=== PATIENT | female | born 1950 | race Caucasian/White ===

== ENCOUNTER 2019-07-13 07:01 | Inpatient (IN) ==
[2019-07-13] MEDS ORDERED: DUONEB (A & A) INH ONE (07:24)
[2019-07-13 07:33] LABS: ALLEN TEST YES; BE -12.7 mmoll (-3.0-3.0); BLOOD TYPE ARTERIAL; HCO3-(ACT) 14.7 mmoll (20.0-26.0); METHB 0.7 % (0.0-1.5); O2(CT) 14.6 mL/dL (15.0-23.0); PCO2(98.6) 37 mmHg (35-45); PO2(98.6) 56 mmHg (60-100); SAMPLE BLOOD; SAO2 86.5 % (95.0-100.0); THB 12.3 g/dL (11.5-17.4)
[2019-07-13 07:34] LABS: O2HB 84.2 % (95.0-99.0)
[2019-07-13 07:35] LABS: MODALITY NRB
--- NOTE | 2019-07-13 07:49 | Diag Imaging Result Doc PS360 ---
EXAM: CHEST-1 VIEW INDICATION: sob TECHNIQUE: One view COMPARISON: 11/03/2017 FINDINGS: There is dense airspace consolidation throughout the right lung and in the left lower lobe. There is no definite pleural fluid collection or pneumothorax. Cardiac silhouette is unremarkable. IMPRESSION: Bilateral airspace consolidation that is worst on the right as described indicating pneumonia. Electronically signed by Rubin Rodriguez 07/13/2019 7:47 AM
[2019-07-13 07:55] LABS: BASO# 0.04 X1000 (0.0-0.2); BASO% 0.1 % (0.0-0.8); EOS# 0.01 X1000 (0.0-0.7); HEMATOCRIT 27.7 % (37.0-47.0); HEMOGLOBIN 9.9 g/dL (12.0-16.0); IMM GRAN# 0.81 X1000 (0.0-0.04); LYMPH% 4.8 % (20.5-51.1); MCH 34.1 PG (27-31); MCHC 35.7 g/dL (33-37); MCV 95.5 FL (81-99); MONO# 0.28 X1000 (0.11-0.59); MPV 11.1 FL (7.4-10.4); NEUT# 24.83 X1000 (1.4-6.5); NEUT% 91.1 % (42.2-75.2); PLT 352 X1000 (130-400); RDW 15.5 % (11.5-14.5); WBC 27.27 X1000 (4.8-10.8)
[2019-07-13 07:57] LABS: INR 1.31; PROTIME 16.5 Seconds (11.0-16.0)
[2019-07-13 07:58] LABS: PTT 35.6 Seconds (22.3-41.8)
[2019-07-13] MEDS ORDERED: LEVAQUIN 750 MG/D5W 750 MG/150 ML IVPB IV ONE (08:05)
[2019-07-13] MEDS ORDERED: SODIUM CHLORIDE IV ONE (08:05)
--- NOTE | 2019-07-13 08:26 | PROVIDER DOCUMENTATION ---
HPI-Respiratory General - General Chief Complaint: SEPSIS ALERT - D Stated Complaint: resp distress Time Seen by Provider: 07/13/19 07:22 Source: patient, family, EMS Allergies/Adverse Reactions: Patient Allergies Allergy/AdvReac Type Severity Reaction Status Date / Time No Known Allergies Allergy Verified 11/03/17 08:03 Home Medications: Home Medication List Medication Instructions Recorded Confirmed Last Taken Type Fluoxetine [Prozac] 40 mg PO DAILY 11/03/17 07/13/19 Unknown History Aripiprazole 1 tab PO DAILY 07/13/19 07/13/19 Unknown History Budesonide/Formoterol Fumarate 07/13/19 07/13/19 Unknown History [Symbicort 160-4.5 Mcg Inhaler] Clorazepate Dipotassium [Tranxene 1 tab PO BID PRN 07/13/19 07/13/19 Unknown History T-Tab] Fluoxetine HCl 20 mg PO DAILY 07/13/19 07/13/19 Unknown History Levothyroxine Sodium [Synthroid] 1 tab PO DAILY 07/13/19 07/13/19 Unknown History Umeclidinium Brm/Vilanterol Tr 1 puff INH DAILY 07/13/19 07/13/19 Unknown History [Anoro Ellipta 62.5-25 Mcg INH] - History of Present Illness-Resp Nature of Presenting Problem: 69 y/o WF brought to Er after being found in respiratory distress this am. Pt notes that she has hx of COPD and was out of her meds for the past week. He Daughter notes that she has also been sick with a "GI stomach bug".EMS noted that pts sats on arrival to home were 50% on RA. Pt does not wear oxygen at home. Quality of Pain: reports: aching Severity in ED: reports: severe Onset/Duration: reports: 1 week ago Timing: reports: still present, getting worse Context: reports: out of meds Cough Quality/Degree: reports: moderate Episode Frequency: occasional episodes Current Respiratory Medication Therapy: Initiated see nurses note Modifying Factors: improves with: albuterol inhaler, albuterol nebulizer, coughing, deep breath, oxygen Associated Symptoms: reports: cough, shortness of breath, wheezing. denies: chest pain/soreness, fever/chills Similar Symptoms Previously?: Yes Recently seen or treated by another doctor?: No Review of Systems - Adult - REVIEW OF SYSTEMS - ADULT Constitutional: reports: no symptoms reported, see HPI Eyes: reports: no symptoms reported, see HPI Ears, Nose, Mouth & Throat: reports: no symptoms reported, see HPI Cardiovascular: reports: no symptoms reported, see HPI Respiratory: reports: see HPI, cough, shortness of breath, wheezing Gastrointestinal: reports: no symptoms reported, see HPI Genitourinary: reports: no symptoms reported, see HPI Musculoskeletal: reports: no symptoms reported, see HPI Integumentary: reports: no symptoms reported, see HPI Neurological: reports: no symptoms reported, see HPI Psychiatric: reports: no symptoms reported, see HPI Endocrine: reports: no symptoms reported, see HPI Hematologic/Lymphatic: reports: no symptoms reported, see HPI Allergic/Immunologic: reports: no symptoms reported, see HPI All Other Systems: Reviewed and Negative Past History - Adult - PAST MEDICAL HISTORY-ADULT Review of Records: reports: Nursing Assessment Review, Medications Reviewed, Social history reviewed & non-contributory. Major Childhood Illnesses: reports: denies history Cardiovascular: reports: denies history Respiratory: reports: COPD Gastrointestinal: reports: denies history Genitourinary: reports: denies history Physical Exam-General - PHYSICAL EXAM-ADULT Initial Vital Signs Reviewed: Yes - CONSTITUTIONAL General Appearance: appears well, alert, moderate distress, anxious - EYES Eyes: PERRL/EOMI - HEAD, EARS, NOSE, MOUTH & THROAT HENMT: normocephalic/atraumatic, moist mucous membranes - NECK Neck: non-tender, full range of motion, supple, normal inspection - RESPIRATORY Respiratory: respiratory distress (inproved with bipap), rhonchi (worse on rt side), wheezing, increased rate - CARDIOVASCULAR Cardiovascular: normal peripheral pulses, regular rate, rhythm, no edema, no gallop, no JVD, no murmur - GASTROINTESTINAL (ABDOMEN) Abdominal Exam: normal bowel sounds, non tender, soft, no organomegaly, no pulsatile mass - LYMPHATIC Lymphatic: no adenopathy - MUSCULOSKELETAL Back Exam: normal inspection, no CVA tenderness, no vertebral tenderness Extremity: normal range of motion, non-tender, normal gait, normal inspection, no pedal edema, no calf tenderness, normal capillary refill - SKIN Integumentary: normal color, normal turgor - NEUROLOGIC Neurologic: java front end web developer II-XII nml as tested, grossly normal, no motor/sensory deficits - PSYCHIATRIC Psych/Mental Status: normal mood/affect, normal thought content, normal thought process, oriented x 3 - HEART Score HEART Score: History: Slightly Suspicious HEART Score: ECG: Non-Specific Repolarization Disturbance/LBBB/PM HEART Score: Age: > or = 65 Years HEART Score: Risk Factors for Atherosclerotic Disease: 1 or 2 Risk Factors HEART Score: Troponin: < or = Normal Limit Total HEART Score:: 4 Progress - PLAN OF CARE/RESULTS Progress/Plan/Lab Results: Vital Signs - 8 hr 07/13/19 07:18 07/13/19 07:47 07/13/19 07:53 Temperature 97.5 F L Pulse Rate 93 H 91 H 91 H Respiratory Rate 38 H 36 H 37 H Blood Pressure 110/68 O2 Sat by Pulse Oximetry 86 L 95 95 07/13/19 07:33 Influenza Screen - Final Nasopharyngeal Laboratory Results - last 24 hr 07/13/19 07/13/19 07/13/19 05:40 05:40 05:40 WBC RBC Hgb Hct MCV MCH MCHC RDW Std Deviation Plt Count MPV Immature Gran % (Auto) Neut % (Auto) Lymph % (Auto) [place] % (Auto) Eos % (Auto) Baso % (Auto) Immature Gran # (Auto) Neut # (Auto) Lymph # (Auto) [place] # (Auto) Eos # (Auto) Baso # (Auto) PT INR PTT (Actin FS) Specimen Type Sample Site pH pCO2 pO2 HCO3 Base Excess Oxyhemoglobin ABG O2 Sat (Calculated) ABG O2 Saturation ABG Carboxyhemoglobin ABG Methemoglobin Mars Test A-a O2 Difference Total Hemoglobin Lactate Liter Flow Blood Gas Modality FiO2 % Sodium Potassium Chloride Carbon Dioxide Anion Gap BUN Creatinine Estimated GFR/1.73 m2 BUN/Creatinine Ratio Glucose Calculated Osmolality Calcium Total Bilirubin AST ALT Alkaline Phosphatase Creatine Kinase Troponin T High Sens [id number]-[id number] Pept Total Protein Albumin Globulin Albumin/Globulin Ratio Plasma Lactate Vitamin B12 > 2000 H Folate 15.5 TSH 0.46 Free T4 0.91 L 07/13/19 07/13/19 07/13/19 07:25 07:34 07:34 WBC 27.27 H RBC 2.90 L Hgb 9.9 L Hct 27.7 L MCV 95.5 MCH 34.1 H MCHC 35.7 RDW Std Deviation 15.5 H Plt Count 352 MPV 11.1 H Immature Gran % (Auto) 3.0 H Neut % (Auto) 91.1 H Lymph % (Auto) 4.8 L [place] % (Auto) 1.0 L Eos % (Auto) 0.0 Baso % (Auto) 0.1 Immature Gran # (Auto) 0.81 H Neut # (Auto) 24.83 H Lymph # (Auto) 1.30 [place] # (Auto) 0.28 Eos # (Auto) 0.01 Baso # (Auto) 0.04 PT 16.5 H INR 1.31 PTT (Actin FS) 35.6 Specimen Type ARTERIAL Sample Site R RADIAL pH 7.20 L pCO2 37 pO2 56 L HCO3 14.7 L Base Excess -12.7 L Oxyhemoglobin 84.2 L* ABG O2 Sat (Calculated) 14.6 L ABG O2 Saturation 86.5 L ABG Carboxyhemoglobin 2.10 ABG Methemoglobin 0.7 Mars Test YES A-a O2 Difference 611.0 Total Hemoglobin 12.3 Lactate 5.40 H* Liter Flow 15.0 Blood Gas Modality NRB FiO2 % 100.0 Sodium Potassium Chloride Carbon Dioxide Anion Gap BUN Creatinine Estimated GFR/1.73 m2 BUN/Creatinine Ratio Glucose Calculated Osmolality Calcium Total Bilirubin AST ALT Alkaline Phosphatase Creatine Kinase Troponin T High Sens [id number] Pept Total Protein Albumin Globulin Albumin/Globulin Ratio Plasma Lactate Vitamin B12 Folate TSH Free T4 07/13/19 07/13/19 07/13/19 07:34 08:40 08:40 WBC RBC Hgb Hct MCV MCH MCHC RDW Std Deviation Plt Count MPV Immature Gran % (Auto) Neut % (Auto) Lymph % (Auto) [place] % (Auto) Eos % (Auto) Baso % (Auto) Immature Gran # (Auto) Neut # (Auto) Lymph # (Auto) [place] # (Auto) Eos # (Auto) Baso # (Auto) PT INR PTT (Actin FS) Specimen Type Sample Site pH pCO2 pO2 HCO3 Base Excess Oxyhemoglobin ABG O2 Sat (Calculated) ABG O2 Saturation ABG Carboxyhemoglobin ABG Methemoglobin Mars Test A-a O2 Difference Total Hemoglobin Lactate Liter Flow Blood Gas Modality FiO2 % Sodium 136 Potassium 3.3 L Chloride 98 Carbon Dioxide 15 L Anion Gap 23 BUN 67 H Creatinine 2.7 H Estimated GFR/1.73 m2 17 BUN/Creatinine Ratio 25 Glucose 83 Calculated Osmolality 290 Calcium 7.6 L Total Bilirubin 0.42 AST 48 H ALT 12 Alkaline Phosphatase 228 H Creatine Kinase 99 Troponin T High Sens 65 H [id number]-[id number] Pept Total Protein 5.7 L Albumin 2.2 L Globulin 3.5 Albumin/Globulin Ratio 0.6 Plasma Lactate 5.9 H* Vitamin B12 Folate TSH Free T4 07/13/19 08:40 WBC RBC Hgb Hct MCV MCH MCHC RDW Std Deviation Plt Count MPV Immature Gran % (Auto) Neut % (Auto) Lymph % (Auto) [place] % (Auto) Eos % (Auto) Baso % (Auto) Immature Gran # (Auto) Neut # (Auto) Lymph # (Auto) [place] # (Auto) Eos # (Auto) Baso # (Auto) PT INR PTT (Actin FS) Specimen Type Sample Site pH pCO2 pO2 HCO3 Base Excess Oxyhemoglobin ABG O2 Sat (Calculated) ABG O2 Saturation ABG Carboxyhemoglobin ABG Methemoglobin Mars Test A-a O2 Difference Total Hemoglobin Lactate Liter Flow Blood Gas Modality FiO2 % Sodium Potassium Chloride Carbon Dioxide Anion Gap BUN Creatinine Estimated GFR/1.73 m2 BUN/Creatinine Ratio Glucose Calculated Osmolality Calcium Total Bilirubin AST ALT Alkaline Phosphatase Creatine Kinase Troponin T High Sens [id number]-H-Daheogebizv Pept > 73344 H Total Protein Albumin Globulin Albumin/Globulin Ratio Plasma Lactate Vitamin B12 Folate TSH Free T4 Orders Category Date Time Status Admit - [facility] Routine AdmDCTranf 07/13/19 09:20 Active Activity - Up with Assistance ORDERED Care 07/13/19 09:20 Active Apply Mechanical Device [QM] ORDERED Care 07/13/19 09:20 Active Elevate Head of Bed DIRECTED Care 07/13/19 09:20 Active Encourage Fluids DIRECTED Care 07/13/19 09:20 Active Intake and Output-Strict Q 8-HR ASSESS Care 07/13/19 09:20 Active Nursing- Assist w/ IS as order ORDERED Care 07/13/19 09:20 Active Nursing- Obtain EKG ONCE Care 07/13/19 07:22 Active Turn, Cough and Deep Breathe Q2HR Care 07/13/19 09:20 Active Vital Signs Order Q 4-HR ASSESS Care 07/13/19 09:20 Active Z-Document. for Tele Applied ORDERED Care 07/13/19 09:20 Active Heart Healthy Diet Diet 07/13/19 09:20 Active CHEST-1 VIEW [RAD] Stat Exams 07/13/19 07:22 Completed ABG [RESP] Routine Lab 07/13/19 07:25 Completed BASIC METABOLIC PANEL [CHEM] Routine Lab 07/14/19 06:00 Ordered BLOOD CULTURE [BLDCUL] Stat Lab 07/13/19 07:34 Results CBC WITH DIFF [HEME] Routine Lab 07/14/19 06:00 Ordered CBC WITH ELECTRONIC DIFF [HEME] Stat Lab 07/13/19 07:34 Completed CK PROFILE [SP CHEM] Routine Lab 07/13/19 08:40 Completed COMPREHENSIVE METABOLIC PANEL [CHEM] Routine Lab 07/13/19 08:40 Completed FOLATE Stat Lab 07/13/19 05:40 Completed FREE T4 Routine Lab 07/13/19 05:40 Completed Flu Swab [INFLUENZA SCREEN A/B] Stat Lab 07/13/19 07:33 Completed Flu Swab [INFLUENZA SCREEN A/B] Stat Lab 07/13/19 08:49 Ordered LACTATE, PLASMA [CHEM] Lab 07/13/19 10:45 Ordered LACTATE, PLASMA [CHEM] Lab 07/13/19 13:45 Ordered LACTATE, PLASMA [CHEM] Q3H Lab 07/13/19 07:34 Completed PRO B-NATRIURETIC PEPTIDE Routine Lab 07/13/19 08:40 Completed PROTIME WITH INR [COAG] Stat Lab 07/13/19 07:34 Completed PTT [COAG] Stat Lab 07/13/19 07:34 Completed TROPONIN T HIGH SENSITIVITY Routine Lab 07/13/19 08:40 Completed TSH Routine Lab 07/13/19 05:40 Completed URINALYSIS W/POSS RFLX CULT [URINALYSIS] Stat Lab 07/13/19 07:43 Uncollected VITAMIN B12 Stat Lab 07/13/19 05:40 Completed 0.9% Sodium Chloride Inj [Ns] 1,000 ml Med 07/13/19 09:20 Active IV 75 mls/hr 0.9% Sodium Chloride Inj [Ns] 2,175 ml Med 07/13/19 08:05 Discontinued IV 999 mls/hr Acetaminophen [Tylenol] Med 07/13/19 09:20 Active 650 mg PO Q4H PRN PRN Albuterol 2.5MG/Ipratrop 0.5MG [Duoneb (A & A)] Med 07/13/19 07:24 Discontinued 3 ml INH NOW ONE Albuterol 2.5MG/Ipratrop 0.5MG [Duoneb (A & A)] Med 07/13/19 09:20 Active 3 ml INH Q2H PRN PRN Albuterol 2.5MG/Ipratrop 0.5MG [Duoneb (A & A)] Med 07/13/19 11:30 Active 3 ml INH RTQ4H Budesonide/Formoterol Inhaler [Symbicort 80/4.5 Microgm Med 07/13/19 09:20 Active Inhaler] 2 puff INH RTBID CefTRIAXONE [Rocephin] 1 gm Med 07/13/19 10:00 Active 0.9% Sodium Chloride Inj [Ns] 50 ml IV Q24H Guaifenesin E.r. [Mucinex] Med 07/13/19 10:00 Active 1,200 mg PO Q12HR Levofloxacin 750 mg/D5w [Levaquin 750 mg/D5w] Med 07/13/19 08:05 Discontinued 750 mg in 150 ml IV NOW Methylprednisolone Sod Succ [Solu-Medrol] Med 07/13/19 10:00 Active 40 mg IV Q8H Ondansetron [Zofran] Med 07/13/19 09:20 Active 4 mg IV Q4H PRN PRN Aerosol Treatments Routine Ot 07/13/19 07:25 Completed Aerosol Treatments Routine Ot 07/13/19 09:20 Completed Aerosol Treatments Routine Ot 07/13/19 09:20 Completed Aerosol Treatments Stat Ot 07/13/19 07:25 Completed Aerosol Treatments Stat Ot 07/13/19 09:20 Completed Aerosol Treatments Stat Ot 07/13/19 09:20 Completed BIPAP Stat Ot 07/13/19 07:24 Active Incentive Spirometer Routine Ot 07/13/19 09:20 Completed MDI Treatments Stat Ot 07/13/19 09:20 Completed Oxygen Device Stat Ot 07/13/19 07:43 Completed Telemetry [OM.EQ] Routine Oth 07/13/19 09:20 Active EKG [EKG] Stat Ther 07/13/19 07:22 Ordered Transfer/Admit Order [TRANSFER] Routine Transfer 07/13/19 08:40 Completed Result Diagrams: 07/13/19 07:34 07/13/19 08:40 - CONSULTS/PCP/HOSPITALIST Notification #1 *Consult/PCP/Hospitalist*: Eliana Schrader Time Discussed: 08:20 Consult Disposition: Will see in ED, Admit Departure - Departure Date of Disposition Decision: 07/13/19 Time of Disposition Decision: 08:30 DIAGNOSIS: Sepsis, Pneumonia, COPD (chronic obstructive pulmonary disease) with acute bronchitis, Respiratory distress, Anemia, Elevated troponin, CHF (congestive heart failure) Disposition: ADMITTED INPATIENT 09 Certified Medical Emergency: Emergent Condition: Fair - Critical Care Note This patient required my direct & personal management of CC.: No Attestation - Physician/ HAMILTON Attestation Patient care was provided by Advanced Practice Provider:: No The physician spent face to face time with patient:: Yes Advanced Practice Provider documentation review:: Supervising physician onsite and consulted in the evaluation and care of this patient. The physician did have a face to face encounter with the patient.
--- NOTE | 2019-07-13 08:32 | SEPSIS: TISSUE PERFUSION ASSMT ---
Sepsis: Tissue Perfusion Asstx - Physical Exam Assessment Date: 07/13/19 Time Assessment Initialized: 08:32 Vital Signs: Last Vital Signs Temp 97.5 F L 07/13/19 07:18 Pulse 91 H 07/13/19 07:53 Resp 37 H 07/13/19 07:53 BP 110/68 07/13/19 07:18 Pulse Ox 95 07/13/19 07:53 Height 5 ft 3 in Weight 72.575 kg 07/13/19 08:32 See chart Lung Sounds:: rhonchi (to rt side) Heart Sounds:: Regular Peripheral Pulse Evaluation:: radial (R): 4+, radial (L): 4+, dorsalis-pedis (R): 4+, dorsalis-pedis (L): 4+, posterior tibialis (R): 4+, posterior tibialis (L): 4+ Skin Exam:: flushed, turgor good - Impression Impression:: Tissue Perfusion Adequate - Plan Plan:: See Orders
[2019-07-13 09:08] LABS: ALB/GLOB RATIO 0.6; ALBUMIN 2.2 g/dL (3.5-5.0); CALCIUM 7.6 mg/dL (8.8-10.2); CREATININE 2.7 mg/dL (0.5-0.9); POTASSIUM 3.3 mmol/L (3.5-5.1); TOTAL BILIRUBIN 0.42 mg/dL (0.20-1.00); TOTAL PROTEIN 5.7 g/dL (6.3-8.3)
--- NOTE | 2019-07-13 09:15 | HISTORY AND PHYSICAL ---
HISTORY OF PRESENT ILLNESS: Ms. Stafford is a 69-year-old. She stated that for 3 or 4 days now, she has been more congested and short of breath and it just has progressed. She did not really describe a lot of wheezing, but she said it is hard for her to move air. She says she has been coughing some, not really a productive cough. She denied fever, but her friend who brought her here said that she has had fever and has just felt bad in general. She is not on oxygen, but she has COPD. PAST MEDICAL/SURGICAL HISTORY: They do not know of any other past medical history or surgical history. She does not have diabetes. No heart disease. Only known other medical problem is hypothyroidism, for which she is on Synthroid. She, I think, is followed by Dr. Vines. ALLERGIES: She denies any known drug allergies. FAMILY HISTORY: Unremarkable. No history of heart disease, lung disease, or kidney disease. SOCIAL HISTORY: She quit smoking about a year ago, but she is still vaping, according to her friend. REVIEW OF SYSTEMS: General: She does not report any weight gain or loss. She thinks she may have had some subjective fever and some sweats. HEENT: No change in vision or hearing acuity reported. Neck: No neck pain. No adenopathy that she has appreciated. Cardiovascular: No chest pain or tachy palpitation. GI/: No change in her bowels. No trouble with voiding. No gross hematuria or hematochezia. Musculoskeletal/Neurologic: No focal changes. Endocrinologic/Hematologic: History of hypothyroidism. Skin: She denies any skin rash. PHYSICAL EXAMINATION: GENERAL: She is on BiPAP, but awake, alert, and oriented x3. Answers questions appropriately. Pleasant. VITAL SIGNS: Temp 97.5 degrees, pulse 91, respirations 37, blood pressure 110/68, O2 sat is 95%, but this is on BiPAP. HEENT: Pupils are equal and round. Oral and nasal mucosa did not have any lesions or rashes. NECK: Supple. No adenopathy. LUNGS: Clear in all lung mott. CARDIOVASCULAR: Regular rhythm and rate without murmur or S3. ABDOMEN: Soft, nondistended. EXTREMITIES: No pedal edema. Her carotid, radial, femoral, and pedal pulses are 2+ and symmetrical. CVP less than 6 cm. SKIN: Without any rashes. IMAGING AND LABORATORY DATA: White blood cell count 27,270, hematocrit 25, platelet count 352,000. Note, she has been on some prednisone. Her lactate level is 5.9. ProTime 16.5, INR 1.31, PTT is 35. Blood gas shows pH is 7.20, pCO2 of 37, PO2 is 56, O2 saturation is 86%. This was on 15 L supplementary oxygen, and she is on the BiPAP at the present time. Chest x-ray reported bilateral airspace consolidation that is worse on the right, indicating pneumonia. ASSESSMENT AND PLAN: 1. Chronic obstructive pulmonary disease with pneumonia. It looks like it is bilateral. Will put her on ceftriaxone 1 gram intravenously every 24 hours. We will put her on DuoNebs every 4 hours and then every 2 hours as needed. We will put her on a steroid inhaler with a long- acting beta agonist. Will use Symbicort 80 mcg. We will put her on Solu-Medrol, and will give her 40 mg intravenously every 8 hours, and will start some guaifenesin ER 600 mg by mouth twice a day. Will get a sputum for culture and Gram stain. 2. History of hypothyroidism. We will check her T4 and TSH. Will also check a morning cortisol when we can. This appears to be exacerbation of chronic obstructive pulmonary disease with pneumonia. She also has a history of vaping. We probably need to check nasopharyngeal swab to make sure she does not have influenza. Will use bilevel positive airway pressure as needed, and supplementary oxygen. cc: Mars Noguera MD
[2019-07-13] MEDS ORDERED: DUONEB (A & A) INH PRN (09:20)
[2019-07-13] MEDS ORDERED: ZOFRAN IV PRN (09:20)
[2019-07-13] MEDS ORDERED: NS 1,000 ML IV SCH ×2 (09:20→17:15)
[2019-07-13 09:46] LABS: FREE T4 0.91 ng/dL (0.93-1.70); TSH 0.46 uIUmL (0.27-4.20)
--- NOTE | 2019-07-13 09:55 | ED EKG INTERP ---
This chart was entered by Sun Feliz Scribe, acting as scribe for Henrique Flores MD. EKG Interpretation - EKG Time of EKG reading by physician:: 07:21 EKG Read and Signed by:: Henrique Flores EKG Interpretation (*Must complete 3 of following elements*): Abnormal Rate: 92 Rhythm: accelerated junctional rhythm [place]: normal QRS: RBB (incomplete), other (prolonged QT) NM Interval: normal Comments: nonspecific ST and T wave abnormality Attestation - Physician/ HAMILTON Attestation Patient care was provided by Advanced Practice Provider:: No The physician spent face to face time with patient:: Yes Advanced Practice Provider documentation review:: Supervising physician onsite and consulted in the evaluation and care of this patient. The physician did have a face to face encounter with the patient. This chart was documented by the indicated scribe, (Sun Feliz Scribe) and accurately reflects the services I performed and decisions made by me, Henrique Flores MD, as attested by the provider's signature.
[2019-07-13] MEDS ORDERED: ROCEPHIN 1 GM in NS 50 ML IV SCH (10:00)
[2019-07-13] MEDS: DUONEB (A & A) INH SCH ×4 (10:52→23:20)
[2019-07-13] MEDS: MUCINEX PO SCH ×2 (11:05→21:54)
[2019-07-13] MEDS: SOLU-MEDROL IV SCH ×2 (11:08→18:32)
--- NOTE | 2019-07-13 11:17 | EKG Report ---
Test Performed on : 07/13/2019 07:22:20 AM Test Reason : sob Blood Pressure : / mmHG Vent. Rate : 092 BPM Atrial Rate : 092 BPM P-R Int : 114 ms QRS Dur : 100 ms QT Int : 452 ms P-R-T Axes : 017 057 003 degrees QTc Int : 558 ms Normal sinus rhythm. Incomplete right bundle branch block T wave abnormality, consider inferior ischemia Prolonged QT Abnormal ECG When compared with ECG of 13-JUL-2019 07:21, (Unconfirmed) Sinus rhythm. has replaced Junctional rhythm. Unconfirmed Result
[2019-07-13] MEDS ORDERED: VANCOMYCIN IV PER PHARMACY MISC SCH (17:15)
[2019-07-13] MEDS ORDERED: QUELICIN ONE (17:52)
[2019-07-13] MEDS ORDERED: DIPRIVAN 1% ONE (17:52)
[2019-07-13] MEDS ORDERED: DIPRIVAN 1% IV PRN (17:52)
[2019-07-13] MEDS ORDERED: QUELICIN IV ONE (17:56)
[2019-07-13] MEDS ORDERED: DIPRIVAN 1% IV ONE (18:00)
[2019-07-13] MEDS ORDERED: VANCOMYCIN 1,500 MG in NS 250 ML IV ONE (18:00)
[2019-07-13] MEDS: LEVOPHED 8 MG in D5 1/2 NS 250 ML IV SCH ×2 (18:09→22:27)
[2019-07-13] MEDS ORDERED: DOPAMINE 800 MG/D5W 800 MG/500 ML IV.SOLN IV SCH (18:15)
[2019-07-13] MEDS: MAXIPIME 1 GM in NS 50 ML IV SCH (18:27)
[2019-07-13] MEDS: SODIUM CHLORIDE 0.9% INJ SCH (18:32)
[2019-07-13] MEDS: PROTONIX IV SCH (18:32)
--- NOTE | 2019-07-13 18:42 | Diag Imaging Result Doc PS360 ---
EXAM: CHEST-PORTABLE HISTORY: ETT and NG placement TECHNIQUE: Single view COMPARISON: 7:40 AM FINDINGS: There are dense infiltrates throughout the right lung as well as in the mid and lower left lung. These are more prominent. Endotracheal tube has been placed. The tip is located 3 cm above the federico. A nasogastric tube has been placed and is in good position overlying the esophagus and stomach. IMPRESSION: Endotracheal and nasogastric tubes in good position. Electronically signed by Dereck Mcleod 07/13/2019 6:40 PM
[2019-07-13] MEDS: SYMBICORT 80/4.5 MICROGM INHALER INH SCH (19:58)
[2019-07-13] MEDS: DIPRIVAN 1% 1,000 MG/100 ML BOTTLE IV SCH (20:14)
[2019-07-13] MEDS ORDERED: PITRESSIN 40 UNIT in NS 100 ML IV SCH (20:45)
[2019-07-13 21:51] LABS: ALLEN TEST YES; BE -18.4 mmoll (-3.0-3.0); BLOOD TYPE ARTERIAL; HCO3-(ACT) 10.2 mmoll (20.0-26.0); METHB 1.3 % (0.0-1.5); O2(CT) 12.1 mL/dL (15.0-23.0); PCO2(98.6) 50 mmHg (35-45); PO2(98.6) 57 mmHg (60-100); SAMPLE BLOOD; SAO2 83.9 % (95.0-100.0); SRATE 20 BPM; THB 10.6 g/dL (11.5-17.4); TVOL 600 mL
[2019-07-13] MEDS: SODIUM BICARBONATE 8.4% 100 MEQ in D5W 1,000 ML IV SCH (21:53)
[2019-07-13 21:54] LABS: MODALITY VENTILATOR; O2HB 81.1 % (95.0-99.0)
[2019-07-13] MEDS: SODIUM BICARBONATE 8.4% IV PUSH SCH (22:20)
[2019-07-14] MEDS: SODIUM BICARBONATE 8.4% IV PUSH SCH (00:42)
[2019-07-14] MEDS: DIPRIVAN 1% 1,000 MG/100 ML BOTTLE IV SCH ×4 (00:47→20:59)
[2019-07-14] MEDS: SOLU-MEDROL IV SCH ×3 (02:09→18:00)
[2019-07-14] MEDS: LEVOPHED 8 MG in D5 1/2 NS 250 ML IV SCH ×3 (03:13→14:16)
[2019-07-14] MEDS: DUONEB (A & A) INH SCH ×5 (03:51→20:00)
--- NOTE | 2019-07-14 04:40 | PULMONOLOGY CONSULTATION ---
DATE: 07/13/2019 HISTORY OF PRESENT ILLNESS: A 69-year-old female with COPD, ongoing electronic cigarette use, who was brought to the emergency room after being in respiratory distress. Per ER note, the patient had been out of her medicines for a week and also had a "GI bug." The patient was hypoxemic on arrival and was placed on a nonrebreather, and then a BiPAP. The patient when she was transferred to the intensive care unit, she was unarousable and was intubated, and initiated on mechanical ventilation. She is currently on vasopressors. PAST MEDICAL HISTORY: 1. COPD. 2. Hypothyroidism. 3. Possible psychiatric disorder. She is on Abilify, Prozac and Tranxene. SOCIAL HISTORY: Continued e-cigarette use. No tobacco for the last year. FAMILY HISTORY: Not available to this practitioner. REVIEW OF SYSTEMS: Cannot be obtained. PHYSICAL EXAMINATION: Physical exam reveals a frail, chronically ill-appearing white female on mechanical ventilation. Blood pressure 99/58, heart rate 90, respiratory rate 26, oxygen saturation 90%. She has been afebrile during this hospitalization.HEENT: Pupils are equal and reactive. Oropharynx appears clear. Neck is supple. Chest reveals diffuse rhonchi bilaterally. Cardiac exam: Increased rate. Regular rhythm. Abdomen is soft. Extremities are cool to the touch. LABORATORY DATA: White blood count this morning was 27.27, hemoglobin 9.9, platelet count 352,000. Arterial blood gas reveals a pH of 7.00, pCO2 of 50, pO2 of 57 with a rate of 20 and FIO2 of 100. DIAGNOSTIC DATA: Chest x-ray reveals diffuse bilateral infiltrates with marginal sparing of the left upper lobe. These changes were not present 11/03/2017. IMPRESSION: A 69-year-old with: 1. Community-acquired pneumonia, bilateral and severe. 2. Acute hypoxemic and acute hypercapnic respiratory failure. 3. Septic shock. 4. Electronic cigarette use. DISCUSSION: A 69-year-old critically ill patient with problems outlined above. She is hypoxemic and difficult to oxygenate despite FIO2 of 100%. PEEP challenge does not improve her oxygenation, and she has significant shunting present. She also is in septic shock, on Levophed and currently a second vasopressor is being added. Her prognosis is guarded to poor given her age, COPD, and extremely severe lung dysfunction. PLAN: 1. Full ventilatory support. 2. Sedation as needed for comfort. 3. Broad-spectrum antibiotics. We will continue current antibiotics. 4. Vasopressors to maintain mean arterial blood pressure greater than 65. 5. Overall prognosis is poor. Time spent in critical care management 1 hour. cc: Viral Meredith MD
[2019-07-14] MEDS: MAXIPIME 1 GM in NS 50 ML IV SCH ×2 (04:59→17:59)
[2019-07-14 05:07] LABS: ALLEN TEST YES; BE -16.1 mmoll (-3.0-3.0); BLOOD TYPE ARTERIAL; HCO3-(ACT) 12.3 mmoll (20.0-26.0); METHB 1.5 % (0.0-1.5); O2(CT) 13.2 mL/dL (15.0-23.0); O2HB 91.2 % (95.0-99.0); PCO2(98.6) 41 mmHg (35-45); PO2(98.6) 70 mmHg (60-100); SAMPLE BLOOD; SAO2 93.9 % (95.0-100.0); SRATE 20 BPM; THB 10.2 g/dL (11.5-17.4); TVOL 600 mL
[2019-07-14 05:10] LABS: MODALITY VENTILATOR
[2019-07-14] MEDS: SODIUM BICARBONATE 8.4% 100 MEQ in D5W 1,000 ML IV SCH ×3 (05:38→21:00)
[2019-07-14 05:58] LABS: BASO# 0.15 X1000 (0.0-0.2); BASO% 0.7 % (0.0-0.8); HEMATOCRIT 25.2 % (37.0-47.0); IMM GRAN# 0.75 X1000 (0.0-0.04); IMM GRAN% 3.7 % (0.0-0.5); LYMPH# 1.48 X1000 (1.2-3.4); LYMPH% 7.4 % (20.5-51.1); MCH 36.6 PG (27-31); MCHC 35.7 g/dL (33-37); MCV 102.4 FL (81-99); MONO# 0.91 X1000 (0.11-0.59); MONO% 4.5 % (1.7-9.3); MPV 11.4 FL (7.4-10.4); NEUT# 16.78 X1000 (1.4-6.5); NEUT% 83.7 % (42.2-75.2); PLT 254 X1000 (130-400); RBC 2.46 XMIL (4.2-5.4); RDW 17.4 % (11.5-14.5); WBC 20.07 X1000 (4.8-10.8)
[2019-07-14 06:10] LABS: BANDS 4 % (0-1); LYMPHS 4 % (21-51); SEGS 84 % (42-75)
[2019-07-14 06:17] LABS: MAGNESIUM 1.9 mg/dL (1.5-2.7); PHOSPHORUS 9.4 mg/dL (2.7-4.5)
[2019-07-14] MEDS: PROTONIX IV SCH ×2 (06:20→18:00)
[2019-07-14] MEDS: SODIUM CHLORIDE 0.9% INJ SCH ×2 (06:20→18:00)
[2019-07-14] MEDS: SYMBICORT 80/4.5 MICROGM INHALER INH SCH ×2 (06:25→08:08)
[2019-07-14 06:43] LABS: ALB/GLOB RATIO 0.2; CREATININE 2.6 mg/dL (0.5-0.9); POTASSIUM 4.3 mmol/L (3.5-5.1); TOTAL BILIRUBIN 0.52 mg/dL (0.20-1.00); TOTAL PROTEIN 5.2 g/dL (6.3-8.3)
[2019-07-14 06:48] LABS: CALCIUM 5.9 mg/dL (8.8-10.2)
[2019-07-14] MEDS ORDERED: CALCIUM GLUCONATE 1 GM in NS 50 ML IV ONE (06:50)
--- NOTE | 2019-07-14 06:55 | OPERATIVE NOTE ---
PROCEDURE DATE: 07/14/2019 PROCEDURE: Endotracheal intubation. INDICATIONS: Acute respiratory failure with hypoxia on non-rebreather. DESCRIPTION OF PROCEDURE: The patient was sedated with propofol 50 mg and 70 mg of succinylcholine IV. I attempted initially to use direct laryngoscopy, and was not able to visualize the cords easily. Initial intubation was esophageal. This was removed. We used laryngoscopy which was video-assisted, could not place ET tube about 7.5-Omani size, but with a 7- Omani tube we were able to intubate without difficulty and directly visualized going through cords. Patient had bilateral breath sounds. Sats post intubation were about 85%. The patient tolerated procedure. Would hold anticoagulation for at least 24 hours. The patient had secretions noted at the level of her airway, which was consistent with possible gastric contents that were dark in color. Chest x-ray confirmed placement of the ET tube 3 cm above federico. cc: Rajinder Catalan MD
--- NOTE | 2019-07-14 06:59 | Diag Imaging Result Doc PS360 ---
CHEST-PORTABLE - 07/14/2019 INDICATION: respiratory failure COMPARISON: 07/13/2019 FINDINGS: Support lines and tubes are stable and in good position. There is been some apparent decrease in the density of the diffuse infiltrate throughout the left lung. Stable dense, coarse infiltrate throughout the right lung. Heart size is normal. No pneumothorax or large pleural effusion. IMPRESSION: Decrease in the dense infiltrate throughout the left lung. Electronically signed by Kody Levine 07/14/2019 6:57 AM
[2019-07-14] MEDS: HUMALOG SUBQ SCH ×3 (07:26→21:00)
[2019-07-14] MEDS: MUCINEX PO SCH ×2 (08:44→21:00)
[2019-07-14] MEDS: TYLENOL PO PRN (09:51)
[2019-07-14] MEDS ORDERED: VASELINE TOP PRN (09:59)
[2019-07-14] MEDS ORDERED: NS 250 ML ONE (12:48)
--- NOTE | 2019-07-14 13:25 | PROGRESS NOTE ---
DATE: 07/14/2019 SUBJECTIVE: She is intubated and sedated. Her blood pressure appears to be doing pretty well. I have talked to her daughter from [place]. OBJECTIVE: Vital Signs: Temperature was 102 degrees, and she has had fevers. Given her some Tylenol. She is on broad-spectrum antibiotics. Pulse is 90, respirations 30, blood pressure 128/58. Eyes: Pupils are equal and round. Lungs: Clear anterolateral. Cardiovascular exam: Regular rhythm and rate without murmur or S3. Abdomen: Soft. Skin: Skin is warm and dry. CULTURES: Blood cultures showed gram-positive cocci 2/2. Her influenza screen was negative for influenza A and B. Sputum culture: White blood cells 3+, gram-positive cocci 1+. ASSESSMENT AND PLAN: 1. Community-acquired pneumonia, bilateral and severe. Acute hypoxemic and acute hypercapnic respiratory failure. 2. Septic shock with acidosis, elevated lactate level. 3. History of electronic cigarette use. 4. Probably has underlying chronic obstructive pulmonary disease. 5. Acute kidney injury ORDERS: 1. She is on guaifenesin ER 1200 mg p.o. q. 12 hours. 2. Symbicort 80/4.5 two puffs b.i.d. 3. Cefepime 1 g IV q. 12 hours. 4. Methylprednisone 40 mg IV q. 8 hours. 5. Levaquin 750 mg IV; was given 1 dose. LABORATORY DATA: White count 20,070, hematocrit 25, platelet count 250,000. Sodium 133, potassium 4.3, chloride 92. BUN 61, creatinine 2.6. DISPOSITION: Continue present fluids. She is getting D5 water with some bicarb at 150 mL an hour. She is on dopamine and she is on Levophed as well. cc: Mars Noguera MD
[2019-07-14 18:45] LABS: URINE SOURCE CATH
[2019-07-14 18:53] LABS: UR EPITHELIAL CELLS <10 /HPF (<10); URINE BACTERIA NEGATIVE /HPF; URINE RBC TNTC /HPF (<10); URINE WBC <10 /HPF (<10)
[2019-07-14 19:04] LABS: BILIRUBIN URINE NEGATIVE (NEGATIVE); BLOOD URINE MODERATE (NEGATIVE); COLOR YELLOW; GLUCOSE URINE TRACE mg/dL (NEGATIVE); KETONE URINE TRACE mg/dL (NEGATIVE); LEUKOCYTES URINE NEGATIVE (NEGATIVE); NITRITE URINE NEGATIVE (NEGATIVE); PH URINE 5.5; PROTEIN URINE 100 mg/dL (NEGATIVE); SP GRAVITY URINE 1.023; TURBIDITY URINE TURBID (CLEAR); UROBILINOGEN URINE NORMAL (NORMAL)
[2019-07-15] MEDS: LEVOPHED 8 MG in D5 1/2 NS 250 ML IV SCH (00:02)
[2019-07-15] MEDS: DUONEB (A & A) INH SCH ×7 (00:10→23:54)
[2019-07-15] MEDS: SYMBICORT 80/4.5 MICROGM INHALER INH SCH ×3 (00:11→21:39)
--- NOTE | 2019-07-15 00:32 | PULMONOLOGY PROGRESS NOTE ---
DATE: 07/14/2019 SUBJECTIVE: The patient is sedated. She remains on full ventilatory support. OBJECTIVE: Vital Signs: Maximum temperature at 8 o'clock this morning was 102.0 degrees. She remains on vasopressors. Mean arterial pressure greater than 65. Oxygen saturation 96%. HEENT: Pupils are equal. Oropharynx appears clear. Neck: Supple. Chest: Reveals coarse rhonchi bilaterally. Cardiac: S1-S2, increased rate. Abdomen: Soft with diminished bowel sounds. Extremities: Slightly cool to the touch. LABORATORIES: Chest x-ray reveals bilateral infiltrates. Infiltrate in the right and the left lung are decreasing in severity. Blood cultures are both growing a gram- positive cocci. Sputum culture is pending. Sodium 133, potassium 4.3, chloride 92, bicarbonate 17, BUN 61, creatinine 2.6. IMPRESSION: A 69-year-old with: 1. Severe bilateral community-acquired pneumonia. 2. Hypoxemic and hypercapnic respiratory failure. 3. Septic shock with positive blood cultures. 4. Acute renal failure. 5. History of electronic cigarette use. PLAN: 1. Continue full ventilatory support. 2. Continue broad-spectrum antibiotics pending results of cultures. 3. Wean vasopressors as tolerated. 4. Overall prognosis is poor given multiorgan dysfunction. Daughter is at the bedside and is aware that she may not survive this hospital stay. Time spent in critical care management: 45 minutes cc: Viral Meredith MD MTDD
[2019-07-15] MEDS: SOLU-MEDROL IV SCH ×3 (02:02→17:25)
[2019-07-15] MEDS: HUMALOG SUBQ SCH ×5 (02:02→20:36)
[2019-07-15] MEDS: DIPRIVAN 1% 1,000 MG/100 ML BOTTLE IV SCH ×4 (03:14→23:47)
[2019-07-15 04:55] LABS: ALLEN TEST YES; BE -6.2 mmoll (-3.0-3.0); BLOOD TYPE ARTERIAL; HCO3-(ACT) 20.1 mmoll (20.0-26.0); METHB 1.4 % (0.0-1.5); O2(CT) 12.2 mL/dL (15.0-23.0); O2HB 95.1 % (95.0-99.0); PCO2(98.6) 49 mmHg (35-45); PO2(98.6) 91 mmHg (60-100); SAMPLE BLOOD; SRATE 20 BPM; TVOL 600 mL; pH(98.6) 7.24 (7.35-7.45)
[2019-07-15 05:00] LABS: MODALITY VENTILATOR
[2019-07-15] MEDS: MAXIPIME 1 GM in NS 50 ML IV SCH ×2 (05:13→16:48)
[2019-07-15] MEDS: PROTONIX IV SCH ×2 (05:13→17:25)
[2019-07-15] MEDS: SODIUM BICARBONATE 8.4% 100 MEQ in D5W 1,000 ML IV SCH (05:47)
--- NOTE | 2019-07-15 06:28 | Diag Imaging Result Doc PS360 ---
EXAM: CHEST-PORTABLE HISTORY: respiratory failure TECHNIQUE: Single view COMPARISON: 07/14/2019 FINDINGS: No change in the endotracheal tube or nasogastric tube. There is a right-sided PICC line with tip overlying the right atrium on the current study. There are dense bilateral infiltrates. These may be slightly more prominent in the left lung. Trace pleural fluid. IMPRESSION: Stable to mild worsening. Electronically signed by Dereck Mcleod 07/15/2019 6:26 AM
[2019-07-15] MEDS: MUCINEX PO SCH ×2 (09:06→21:10)
[2019-07-15 09:45] LABS: ALB/GLOB RATIO 0.3; ALBUMIN 1.2 g/dL (3.5-5.0); CREATININE 3.6 mg/dL (0.5-0.9); POTASSIUM 4.3 mmol/L (3.5-5.1); TOTAL BILIRUBIN 0.96 mg/dL (0.20-1.00); TOTAL PROTEIN 5.4 g/dL (6.3-8.3)
[2019-07-15 09:57] LABS: CALCIUM 4.9 mg/dL (8.8-10.2)
[2019-07-15] MEDS ORDERED: CALCIUM GLUCONATE 2 GM in NS 100 ML IV ONE (10:08)
[2019-07-15 10:13] LABS: HEMATOCRIT 24.1 % (37.0-47.0); MCH 31.1 PG (27-31); MCHC 33.2 g/dL (33-37); MCV 93.8 FL (81-99); MPV 11.8 FL (7.4-10.4); RBC 2.57 XMIL (4.2-5.4); RDW 15.5 % (11.5-14.5); WBC 22.86 X1000 (4.8-10.8)
[2019-07-15] MEDS: NS 1,000 ML IV SCH ×2 (10:43→21:10)
--- NOTE | 2019-07-15 16:55 | PROGRESS NOTE ---
DATE: 07/15/2019 SUBJECTIVE: She is intubated. Her pupils are nonresponsive. Liver enzymes are elevated. Creatinine has gone up. Her feet are very cool with mottling noted. OBJECTIVE: She has remained afebrile, temperature 99.1 degrees. Pulse 80, respirations 28, blood pressure 96/66. Blood pressure is coming up a little bit. We were able to wean down the Levaquin. She is off of the dopamine. Pupils are equal and round. Lungs: Clear in all lung mott anterolateral. Cardiovascular: Regular rhythm and rate without murmur or S3. Abdomen: Soft. Skin: Warm and dry. DIAGNOSTIC DATA: Urine output was 2400 mL. Chest x-ray: [id number] worsening. No change in endotracheal tube or nasogastric tube. There is right-sided PICC line appreciated, tip overflowing the right atrium. There are dense bilateral infiltrates appreciated, maybe slightly more prominent in the left lung. Trace pleural fluid. LABORATORY DATA: White count is 22,860, hematocrit is 24, hemoglobin is 8, platelet count is 72,000, which has dropped. Chemistry: Sodium 129, potassium 4.3, chloride 89, bicarbonate 19, BUN 84, creatinine 3.6, blood sugar 358, 396, 395, 365, 242. Her calcium was down to 4.9. AST 4119, ALT 974, alkaline phosphatase 219, albumin was 1.2. ASSESSMENT: 1. Severe bilateral community-acquired pneumonia. 2. Hypoxemic and hypercapnic respiratory failure. 3. Septic shock, positive blood cultures. 4. Acute renal failure. 5. Hepatic irritation from shock and shocky liver. PLAN: She is very sick with pneumonia with sepsis, multiorgan failure, hepatopathy, and acute kidney injury. Concerned about anoxic brain injury. We are going to get an EEG on her. I have explained to family, it is not a good prognosis. Looking at current orders and medication, will continue present. cc: Mars Noguera MD
[2019-07-15] MEDS: SODIUM CHLORIDE 0.9% INJ SCH (17:25)
--- NOTE | 2019-07-15 21:00 | PULMONOLOGY PROGRESS NOTE ---
DATE: 07/15/2019 SUBJECTIVE: The patient is sedated. She is on full ventilatory support. She does not withdraw from pain. OBJECTIVE: Vital signs: Blood pressure is 119/77 with a heart rate of 77, respirations are 24, temperature 98.8 degrees, with O2 saturations 94 to 95 percent. HEENT: Pupils are 4 mm, nonreactive. Head is normocephalic, atraumatic. Neck: Supple with trachea midline. Cardiovascular: Regular rate and rhythm. S1 and S2 appreciated. No murmur. Pulmonary: Coarse breath sounds throughout. Chest rises and falls symmetrically with respiration. Gastrointestinal: Abdomen is soft, nondistended, with bowel sounds in all 4 quadrants. Extremities: Pale and cool to the touch. LABS: WBC is 22.8 with hemoglobin 8, hematocrit 24.1, and platelets of 72,000. Sodium is 129, potassium 4.3, BUN 84, and creatinine 3.6 with a glucose of 396. Calcium is 4.9. AST is 4119 with ALT 974 and alkaline phosphatase 218. Blood cultures revealed Streptococcus pneumoniae. Chest x-ray revealed no change in endotracheal or NG tube. There is a right- sided PICC line with tip overlying the right atrium. There are dense bilateral infiltrates, may be slightly more prominent in left lung, with trace pleural fluid. ASSESSMENT: 1. Severe bilateral community-acquired pneumonia. 2. Hypoxemic hypercapnic respiratory failure. 3. Septic shock, with positive blood cultures. 4. Acute renal failure. 5. History of electronic cigarette use. 6. Elevated liver function tests, secondary to shock PLAN: 1. We will continue full ventilatory support. 2. We will continue antibiotics as ordered per primary team. 3. Wean vasopressors as tolerated per protocol. 4. Overall prognosis is poor, given multiorgan dysfunction. I did discuss with the daughter at length the patient's critical status, the fact that she may not survive. We did discuss her Code status. At the present, the daughter wants to keep the patient a Full Code. Plan was discussed with Dr. Meredith. Dictated by RAVI Simpson for Viral Meredith MD The clinical exam was performed by RAVI Valles. I have reviewed and agree with the assessment and plan. I reviewed films and case on line. Critical care time per nurse practitioner: Greater than 30 minutes. Viral Meredith M.D. cc: RAVI Simpson MD [facility]ITALGasper
[2019-07-16] MEDS: TYLENOL PO PRN (01:39)
[2019-07-16] MEDS: SOLU-MEDROL IV SCH ×3 (01:39→17:11)
[2019-07-16] MEDS: HUMALOG SUBQ SCH ×4 (01:42→20:27)
[2019-07-16] MEDS ORDERED: OFIRMEV 1000 MG/ISOTONIC SOLN 1,000 MG/100 ML BOTTLE IV PRN (01:59)
[2019-07-16] MEDS ORDERED: TYLENOL PR PRN (02:49)
[2019-07-16] MEDS: DUONEB (A & A) INH SCH ×6 (03:32→22:57)
[2019-07-16 04:54] LABS: ALLEN TEST YES; BE -9.4 mmoll (-3.0-3.0); BLOOD TYPE ARTERIAL; HCO3-(ACT) 17.6 mmoll (20.0-26.0); METHB 1.4 % (0.0-1.5); O2(CT) 13.4 mL/dL (15.0-23.0); PCO2(98.6) 45 mmHg (35-45); PO2(98.6) 187 mmHg (60-100); SAMPLE BLOOD; SAO2 99.7 % (95.0-100.0); SRATE 20 BPM; THB 9.5 g/dL (11.5-17.4); TVOL 600 mL; pH(98.6) 7.21 (7.35-7.45)
[2019-07-16 05:04] LABS: MODALITY VENTILATOR
[2019-07-16] MEDS: MAXIPIME 1 GM in NS 50 ML IV SCH ×2 (05:34→16:52)
[2019-07-16] MEDS ORDERED: VANCOMYCIN 1 GM/NS 1 GM/250 ML IVPB IV SCH ×3 (06:00→10:00)
[2019-07-16] MEDS: DIPRIVAN 1% 1,000 MG/100 ML BOTTLE IV SCH ×2 (06:06→08:59)
[2019-07-16] MEDS: PROTONIX IV SCH ×2 (06:42→17:11)
--- NOTE | 2019-07-16 07:27 | Diag Imaging Result Doc PS360 ---
EXAM: CHEST-PORTABLE 07/16/2019 HISTORY: respiratory failure TECHNIQUE: AP portable at 0548 COMMENT: There is an NG tube with its tip below the diaphragm and an endotracheal tube with its tip at the thoracic inlet. There is diffuse interstitial opacity with some alveolar opacity in the right upper and lower lobes. There has been slight improvement compared to 07/15/2019 quickly with regard to the left and right upper lobes. IMPRESSION: Improved pulmonary edema. Electronically signed by Adriano Drake 07/16/2019 7:25 AM
[2019-07-16 07:37] LABS: HEMATOCRIT 23.2 % (37.0-47.0); HEMOGLOBIN 8.3 g/dL (12.0-16.0); MCH 37.2 PG (27-31); MCHC 35.8 g/dL (33-37); PLT 78 X1000 (130-400); RBC 2.23 XMIL (4.2-5.4); RDW 16.4 % (11.5-14.5); WBC 14.78 X1000 (4.8-10.8)
[2019-07-16] MEDS: SYMBICORT 80/4.5 MICROGM INHALER INH SCH ×2 (07:54→20:17)
[2019-07-16 08:08] LABS: ALB/GLOB RATIO 0.4; ALBUMIN 1.6 g/dL (3.5-5.0); POTASSIUM 5.2 mmol/L (3.5-5.1); TOTAL BILIRUBIN 0.92 mg/dL (0.20-1.00); TOTAL PROTEIN 5.4 g/dL (6.3-8.3)
[2019-07-16 08:09] LABS: CALCIUM 4.9 mg/dL (8.8-10.2)
[2019-07-16] MEDS: MUCINEX PO SCH ×2 (08:58→22:33)
[2019-07-16] MEDS: LEVOPHED 8 MG in D5 1/2 NS 250 ML IV SCH ×2 (08:59→16:50)
[2019-07-16] MEDS: NS 1,000 ML IV SCH (09:01)
[2019-07-16] MEDS ORDERED: CALCIUM GLUCONATE 2 GM in NS 100 ML IV ONE (09:02)
[2019-07-16] MEDS: ALBUMIN 25% IV SCH ×2 (10:18→16:52)
[2019-07-16] MEDS ORDERED: SODIUM BICARBONATE 8.4% 150 MEQ in D5W 1,000 ML IV SCH (13:00)
--- NOTE | 2019-07-16 15:31 | PULMONOLOGY PROGRESS NOTE ---
DATE: 07/16/2019 SUBJECTIVE: The patient is intubated. Pupils are nonresponsive. Liver enzymes and creatinine continue to rise. Feet and hands are now mottled and cold. OBJECTIVE: Vital Signs: She is now febrile with a T-max of 101.7 degrees over the last 24 hours, blood pressure is 111/55 with a heart rate of 83, respirations are ranging from 25 to 28 with O2 saturations that are 94 to 100 percent. HEENT: Pupils are 4 mm, nonreactive. Head is normocephalic, atraumatic. Neck: Neck is supple with trachea midline. Cardiovascular: Regular rate and rhythm. S1 and S2 are appreciated. Pulmonary: Breath sounds are coarse throughout. She does have some mild expiratory wheezes. Chest rises and falls symmetrically with respiration Gastrointestinal: Abdomen is soft, nondistended, with bowel sounds in all 4 quadrants. Skin: Skin is warm and dry. She is mottled on hands and feet. Skin is cool. Extremities: She has increasing edema in all 4 extremities. She is mottled from her hands and wrist bilateral and feet to her ankles bilateral. LABS: WBC is 14.7 with hemoglobin 8.3, hematocrit 23.2, platelets of 78. Sodium 131, potassium 5.2. BUN 93, creatinine 4, with glucose of 134, calcium is 4.9. AST is 3093, ALT 1009, alkaline phosphatase 115. ABG: The pH is 7.2 with a pCO2 45, PO2 187, bicarbonate 17.6. X-RAYS: Chest x-ray reveals improved pulmonary edema. There is diffuse interstitial opacity and some alveolar opacity in the right upper and lower lobe. IMPRESSION: This is a 69-year-old female with: 1. Severe bilateral community-acquired pneumonia. 2. Hypoxemic hypercapnic respiratory failure. 3. Septic shock with Staphylococcus pneumoniae positive blood cultures times two. 4. Acute renal failure. 5. Acute liver failure. 6. History of electronic cigarette use. 7. Hypocalcemia. PLAN: continue full ventilatory support. Continue broad-spectrum antibiotics. Continue vasopressors. replete calcium. albumin 25 g x2 today. Discussed with daughter, Overall prognosis is poor given multi organ dysfunction, Plan was discussed with Dr. Meredith. Dictated by RAVI Simpson for Viral Meredith MD Clinical exam was performed by RAVI Valles. The labs and x-rays were reviewed by me remotely. Case was discussed with RAVI De Jesus and I agree with her assessment and plan. Total time spent in critical care management by the nurse practitioner in conjunction with this practitioner: Greater than 30 minutes. Viral Crook M.D cc: RAVI Simpson MD [facility]
--- NOTE | 2019-07-16 17:37 | PROGRESS NOTE ---
DATE: 07/16/2019 SUBJECTIVE: Ms. Stafford is intubated. Her pupils were reactive to light. OBJECTIVE: Vital signs: She still is having fever 101.1, pulse 80, respirations 28, blood pressure 100/40. HEENT: Pupils are equal and round. Lungs: Lungs are clear in all lung mott anterolateral. Cardiovascular: Regular rhythm and rate without murmur or S3. Abdomen: Soft. Skin: Skin is warm and dry. Intake and Output: Urine output was 650 mL. DIAGNOSTIC DATA: Blood sugar 262, 113, 90. ASSESSMENT AND PLAN: 1. Severe bilateral community-acquired pneumonia. 2. Hypoxemic hypercapnic respiratory failure. 3. Septic shock with Staphylococcus pneumonia, positive blood cultures x2. 4. Acute renal failure. 5. Acute liver failure. 6. History of electronic cigarette use. 7. Hypocalcemia. CURRENT ORDERS: The patient is on vancomycin and cefepime. LABORATORY DATA: White count has come down a little bit 14,780, hematocrit is 23, hemoglobin 8.3, platelet count 78,000. Sodium 131, potassium 5.2, chloride 92, BUN 93, creatinine 4.0, AST is 3093, ALT is 1009, alkaline phosphatase 215. Blood sugars have dipped down low 395, 365, 242, have 73 and 90. Prognosis is poor. Family is aware. Multiorgan failure on the basis of sepsis with infection. Continue present measures. cc: Mars Noguera MD
--- NOTE | 2019-07-16 21:48 | PROGRESS NOTE ---
DATE: 07/16/2019 Patient does have acute respiratory failure with septic shock and multiorgan system failure. The patient's daughter decided that she wants to terminate care. She has been the one making decisions for her mom. Her other siblings estranged from the patient and patient is currently not . Patient's family's decision will be honored and comfort care measures will be implemented. cc: Cristofer Ga MD
[2019-07-16 22:31] VITALS: BP 74/40
--- NOTE | 2019-09-10 18:04 | DISCHARGE SUMMARY ---
ADMISSION DATE: 07/13/2019 DISCHARGE DATE: 07/16/2019 HOSPITAL COURSE: This is a 69-year-old patient of Dr. Jose Vines that presented after a 3 or 4-day history of being congested, short of breath and she had a past medical history fairly insignificant. No heart disease. She did have history of COPD and it looked like she had pneumonia. We started her on ceftriaxone and bronchodilators. She has a history of hypothyroidism. On chest x-ray she had to be intubated, and the endotracheal and nasogastric tubes were in good position. She had dense infiltrates throughout the right lung as well as the mid and lower left lung. Pulmonary was consulted. Community-acquired pneumonia bilateral and severe acute hypoxemic acute hypercapnic respiratory failure and septic shock, and she did have a history of electronic cigarette use, severe bilateral community-acquired pneumonia, hypoxic hypercapnic respiratory failure and septic shock, and she had acute liver failure and acute renal failure as well. She was put on vasopressors. Very poor prognosis. The patient's daughter's decided she she wanted to terminate care and comfort measures, and she at 2150 on 07/16/2019. cc: Mars Noguera MD
== END 2019-07-16 21:50 | disposition expired | DRG 871 ==
LOC: SUPCPDRO → ED 07:01 → EDIPHOLD 08:58 → 2N 16:22 → ICU 18:20
PROVIDERS: ATTEND Emergency Medicine